=== PATIENT | female | born 1970 | race Caucasian/White ===

== ENCOUNTER 2020-08-12 16:19 | Outpatient (REF) | payer OTHER, SELFPAY ==
--- NOTE | 2020-08-12 16:20 | MR_ITS ---
EXAMINATION: MR PELVIS WITHOUT AND WITH CONTRAST CLINICAL INFORMATION: Leiomyoma of uterus, unspecified; D25.9 COMPARISON: Ultrasound pelvis 05/20/2020 TECHNIQUE: MR pelvis is performed without and with use of 7.5 mL Gadavist gadolinium contrast. Precontrast imaging is performed in 3 planes and postcontrast imaging in the axial plane. FINDINGS: The uterus is anteverted and measures 9.6 x 8.0 x 6.8 cm. Endometrial double wall thickness is under 4 mm. Junctional zone is normal. There is a dominant fibroid posterior body intramural and subserosal measuring 4.8 x 4.9 x 5.4 cm. This fibroid is isoechoic with myometrium on T1 and T2 with scattered internal high T2 signal. This fibroid enhances isointense with myometrium following contrast with a few small internal foci of cystic degeneration, largest 1 cm. There are approximately 10 other scattered smaller fibroids within the uterus fundus, body, and lower segment ranging in size from 0.6 cm to 1.5 cm. These fibroids range from submucous to subserous in location. These are all isoechoic with myometrium on T1 and low signal on T2. Some of these fibroids enhance similar to myometrium and others less than myometrium following contrast. The ovaries are unremarkable. There is no adnexal mass. Left ovary measures approximately 2.9 x 1.7 cm. The right ovary measures 2.3 x 1.1 cm. There is no bowel obstruction or inflammatory changes in bowel or mesentery. The appendix is normal. There is no significant hernia. No adenopathy. Marrow signal is normal. There is a small left S2 Tarlov cyst measuring 0.9 x 1.1 cm, best appreciated sagittal series 5, image 14. IMPRESSION: 1. Multiple uterine fibroids, largest 5.4 cm, others 1.5 cm and less. 2. No adnexal mass or pelvic ascites. 3. Left S2 Tarlov cyst 1 cm.
== END 2020-08-12 16:20 | disposition home or self-care (01) ==
LOC: HO.MRI 16:19
PROVIDERS: Visit Provider Obstetrics & Gynecology
DX: D25.9 Leiomyoma of uterus, unspecified (principal)
CPT/HCPCS: 72197

== ENCOUNTER → 2020-09-01 15:51 | Outpatient (BNVA) | payer OTHER, SELFPAY | PROVIDERS: Visit Provider Obstetrics & Gynecology | DX: Z76.89 Persons encountering health services in other specified circumstances (principal) ==

== ENCOUNTER → 2020-12-16 12:50 | Outpatient (BNVA) | payer OTHER, SELFPAY | PROVIDERS: Visit Provider Physician Assistant Medical | DX: S61.211A Laceration without foreign body of left index finger without damage to nail, initial encounter (principal); W26.8XXA Contact with other sharp object(s), not elsewhere classified, initial encounter | CPT/HCPCS: 90715; 99203 ==

== ENCOUNTER → 2020-12-18 13:41 | Outpatient (BNVA) | payer OTHER, SELFPAY | PROVIDERS: Visit Provider Internal Medicine | DX: S61.211A Laceration without foreign body of left index finger without damage to nail, initial encounter (principal); W26.8XXA Contact with other sharp object(s), not elsewhere classified, initial encounter | CPT/HCPCS: 99213 ==

== ENCOUNTER → 2020-12-22 13:27 | Outpatient (BNVA) | payer OTHER, SELFPAY | PROVIDERS: Visit Provider Internal Medicine | DX: S61.211D Laceration without foreign body of left index finger without damage to nail, subsequent encounter (principal); L08.9 Local infection of the skin and subcutaneous tissue, unspecified; X58.XXXD Exposure to other specified factors, subsequent encounter | CPT/HCPCS: 99213 ==

== ENCOUNTER 2021-01-06 13:25 | Outpatient (REF) | payer OTHER, SELFPAY ==
--- NOTE | ~2021-01-06 | US_ITS ---
EXAMINATION: PELVIC ULTRASOUND CLINICAL INFORMATION: Leiomyoma of uterus COMPARISON: Previous CT and ultrasound of the pelvis April 2020 and MRI of the pelvis July 2020 TECHNIQUE: Transabdominal and transvaginal pelvic ultrasound was performed. Transvaginal exam was performed for better visualization of the uterus and ovaries. FINDINGS: The uterus is anteverted and measures 8 x 4.4 x 4.9 cm in dimension. There is a large posterior uterine body intramural and subserosal fibroid measuring 4.7 x 4.3 x 4.9 cm. This is not appreciably changed in size measuring 5 x 4.4 x 5.2 cm on previous ultrasound exam and 4.8 x 4.9 x 5.4 cm on previous MRI. There are 2 smaller anterior uterine body and fundal intramural fibroids measuring 1.4 x 1.9 x 1.5 cm and 1.6 x 2 x 1.2 cm. These were not seen on prior ultrasound. These do not appear appreciably changed compared to previous pelvic MRI July 2020. The remainder of the small uterine fibroids seen by MRI July 2020 are not appreciated. Endometrial thickness is normal measuring 0.6 cm. The IUD is seen on April 2020 exam is no longer seen. This was not seen on previous MRI July 2020. The cervix is normal. The right ovary is not seen. The left ovary is normal-appearing and measures 1.6 x 1.6 x 1.1 cm. There is no fluid in the pelvis. US/US pelvic complete IMPRESSION: Fibroid uterus. Largest fibroid measures 4.7 x 4.3 x 4.9 cm in the posterior uterine body and does not appear appreciably changed. Right ovary not seen. Normal-appearing left ovary.
== END 2021-01-06 13:26 | disposition home or self-care (01) ==
LOC: HO.US 13:25
PROVIDERS: Visit Provider Obstetrics & Gynecology
DX: D25.9 Leiomyoma of uterus, unspecified (principal)
CPT/HCPCS: 76830; 76856

== ENCOUNTER → 2021-01-19 10:23 | Outpatient (BNVA) | payer OTHER, SELFPAY | PROVIDERS: Visit Provider Obstetrics & Gynecology ==

== ENCOUNTER 2021-03-03 10:18 | Emergency (ER) | payer OTHER, SELFPAY ==
--- NOTE | ~2021-03-03 | MR_ITS ---
EXAMINATION: MR BRAIN WITHOUT AND WITH CONTRAST CLINICAL INFORMATION: Right eye rectus muscle palsy. Vertical double vision. COMPARISON: CT head from 03/03/2021. Brain MRI from 07/09/2016. TECHNIQUE: MRI of the brain was obtained using routine sequences without and following the administration of 7.5 mL of Gadavist intravenous contrast. FINDINGS: No focal restricted diffusion is demonstrated to suggest acute or subacute cerebral ischemia. No evidence of acute or chronic hemorrhagic products on heme-sensitive imaging. Mild scattered periventricular and deep white matter T2 FLAIR hyperintensities. The ventricles are normal in morphology and size. No abnormal mass effect. No midline shift. Normal appearance of the pituitary gland. The suprasellar cistern remains widely patent. No abnormalities of the posterior fossa with normal appearance of the brainstem and cerebellum. Normal arterial and venous vascular flow voids are present. No abnormal contrast enhancement. Normal, homogeneous marrow signal. Mild mucosal thickening of the paranasal sinuses. No signal abnormalities within the mastoids. No demonstrated abnormalities of the orbits on limited evaluation. MR/MR head/brain wo/w con IMPRESSION: 1. No acute intracranial abnormalities. No abnormal intracranial enhancement. 2. Mild nonspecific white matter changes, similar to exam from 2016.
--- NOTE | ~2021-03-03 | CT_ITS ---
EXAMINATION: CT HEAD WITHOUT CONTRAST CLINICAL INFORMATION: Intermittent diplopia COMPARISON: Previous head CT June 2016 TECHNIQUE: Contiguous axial imaging was performed from the skull base to vertex without intravenous administration of contrast. This CT examination was performed using dose optimization techniques as appropriate, variously including the following: *Automated exposure control *Adjustment of mA and/or kV according to patient size (this includes techniques or standardized protocols for targeted exams where dose is matched to indication/reason for exam; i.e. extremities or head) *Use of iterative reconstruction technique DLP: 684 mGy-cm FINDINGS: There is no evidence of acute intracranial hemorrhage or territorial infarction. No abnormal mass effect or midline shift is seen. [place]ales to white matter differentiation is well preserved. No extra-axial fluid collections are identified. The ventricles are normal in size. There is no abnormal attenuation within the brain parenchyma. The osseous structures and soft tissues are normal. The mastoid air cells and visualized portions of the paranasal sinuses are well aerated. CT/CT head/brain wo con IMPRESSION: Unremarkable exam
--- NOTE | 2021-03-03 10:32 | ECG_ITS ---
Test Reason : DIZZY Blood Pressure : / mmHG Vent. Rate : 054 BPM Atrial Rate : 054 BPM P-R Int : 148 ms QRS Dur : 080 ms QT Int : 410 ms P-R-T Axes : 047 043 042 degrees QTc Int : 388 ms Sinus bradycardia Otherwise normal ECG When compared with ECG of 06-MAY-2020 10:53, No significant change was found Referred By: Richelle Coronado Electronically Signed By:Rubio Marin
--- NOTE | 2021-03-03 10:49 | ED_ITS ---
HPI - Weakness General Chief complaint: General Medical Stated complaint: multiple complaints Time Seen by Provider: 03/03/21 10:23 Source: patient Mode of arrival: ambulatory Limitations: no limitations History of Present Illness HPI Narrative: 50 yo female s/p Moderna first shot on the next day woke up with sweats, fatigue, confusion - slept the entire next day when she woke she felt weak and intermittent vertical diplopia that resolved today, sent by [facility] for evaluation Complaint: generalized weakness Onset (ago): day(s) (started Tuesday after Moderna vaccine) Duration: intermittent Migration: none Severity: moderate Quality: dull Relieving factors: none Exacerbating factors: none Context: other (Moderna vaccine on ) Associated symptoms: other (weakness, fatigue, sweats, vertical double vision that has resolved) Related Data Home Medications Medication Instructions Recorded Confirmed omeprazole 20 mg capsule,delayed 20 mg PO DAILY 07/31/20 09/01/20 release Allergies Allergy/AdvReac Type Severity Reaction Status Date / Time Penicillins [PENICILLINS] Allergy Intermediate HIVES Verified 01/19/21 10:24 Review of Systems Review of Systems: Constitutional : No Weight loss, No Fever, No Chills, No Fatigue, No Malaise ENT/Mouth : No sore throat, No Rhinorrhea Eyes: No Eye Pain, No Swelling, No Redness, pos intermittent double vision Cardiovascular : No Chest Pain, No SOB, No Dyspnea on Exertion, No Orthopnea, No Edema, No Palpitations Respiratory : No Cough, No Sputum, No Wheezing Gastrointestinal : No Nausea, No Vomiting, No Diarrhea, No Constipation, No abdominal Pain, No Hematochezia, No Melena Genitourinary : No Dysuria, No Urinary Frequency, No Hematuria, Musculoskeletal : No joint pain, No Myalgias, No Joint Swelling Skin : No Skin Lesions, No rash Neuro : pos Weakness, No Numbness, No Dizziness, No Headache Psych : No Anxiety/Panic, No Depression Heme/Lymph: No Bruising, No Bleeding,No Lymphadenopathy Endocrine : No Polyuria, No Polydipsia All other systems reviewed and are negative [facility] Past Medical History Attestation statement: The following information was validated with the patient. Medical History (Updated 03/03/21 @ 14:40 by Richelle Coronado DO) Uterine myoma Family History Family History Father Liver cancer Paternal Grandmother Ovarian cancer Paternal Aunt Breast cancer Mother Lung cancer Social History Social History Alcohol intake: never Smoking Status: Current some day smoker Use of substances other than those prescribed or required for medical reasons: No Advance Directives: No Sexual orientation: Straight/Heterosexual Gender identity: female Physical Exam Vital Signs: Vital Signs: Last Vital Signs Temp 97.8 F 03/03/21 16:40 Pulse 57 03/03/21 16:40 Resp 14 03/03/21 16:40 BP 116/84 03/03/21 16:40 Pulse Ox 98 03/03/21 16:40 Body Mass Index 25.8 Appearance: Alert. Oriented X3. No acute distress. Eyes: Pupils equal, round and reactive to light. R eye slightly deviated to the right at times ENT: Pharynx normal. Neck: Normal inspection. Neck supple. CVS: Normal heart rate and rhythm. Pulses normal. Respiratory: No respiratory distress. Breath sounds normal. Abdomen: Soft and nontender. Skin: Skin warm and dry. Normal skin color. Normal skin turgor. Extremities: No lower extremity edema. No calf ttp Neuro: Oriented X 3. No motor deficit. No sensory deficit. 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 as her license picture shows R eye deviation. on Nov 2019 no reports of strabismus at that time per tech in the office. MRI to evaluate for IN ophthalmoplegia vs MS flare has not had return of vision changes while in the ED normal vision during her course in the ED, no signs of MS, no stroke, can follow up with her eye doctor MDM - Weakness MDM Narrative Medical decision making narrative: 50 yo female s/p Moderna first shot on the next day woke up with sweats, fatigue, confusion - slept the entire next day when she woke she felt weak and intermittent vertical diplopia that resolved today, sent by [facility] [employer] for evaluation at this time no known s trabismus of eye, she has no vertical diplopia at this time, will obtain labs, CT head given symptoms > 2 days, possible CTA, IVF dispo per results and findings, unsure if this is chronic or new strabismus and if she has a cranial nerve palsy in the eye. Lab Data Result diagrams: 03/03/21 12:14 03/03/21 12:14 Labs: Lab Results 03/03/21 03/03/21 03/03/21 Range/Units 12:14 12:14 12:14 WBC 8.0 (4.8-10.8) X10*3/uL RBC 4.58 (4.20-5.50) X10*6/uL Hgb 14.4 (12.0-16.0) g/dl Hct 43.1 (37-47) % MCV 94.1 (80-98) fL MCH 31.4 (27.0-33.0) pg MCHC 33.4 (31.0-35.0) g/dl RDW 13.3 (11.0-16.0) % Plt Count 270 (160-400) X10*3/uL MPV 9.7 (9.4-12.3) fL Immature Gran % (Auto) 0.6 H (0.0-0.4) % Neut % (Auto) 67.1 (45-73) % Lymph % (Auto) 24.2 (20-40) % [place] % (Auto) 6.5 (2-11) % Eos % (Auto) 1.1 (0-4) % Baso % (Auto) 0.5 (0-2) % Lymph # (Auto) 1.9 (1.2-4.9) X10*3/uL [place] # (Auto) 0.5 (0.1-1.2) X10*3/uL Eos # (Auto) 0.1 (0.0-0.4) X10*3/uL Baso # (Auto) 0.0 (0.0-0.2) X10*3/uL Abs Immat Gran (auto) 0.05 H (0.00-0.03) X10*3/uL Absolute Neuts (auto) 5.4 (2.0-8.3) X10*3/uL Absolute Nucleated RBC 0.000 (0.0-0.012) X10*3/uL Nucleated RBC % (auto) 0.0 (0.0-0.2) /100WBC Hold Blue Top SEE NOTE Sodium 140 (135-145) mmol/L Potassium 4.2 (3.3-5.1) mmol/L Chloride 108 (96-108) mmol/L Carbon Dioxide 26 (22-29) mmol/L Anion Gap 10 L (12-20) BUN 11 (9-16) mg/dL Creatinine 0.74 (0.5-1.4) mg/dL Estim Creat Clear Calc 92.7 Estimated GFR > 60 Random Glucose 81 (60-115) mg/dL Calcium 8.9 (8.4-10.2) mg/dL Magnesium 2.1 (1.6-2.6) mg/dL Total Bilirubin 0.5 (0.0-1.0) mg/dL Direct Bilirubin 0.2 (0.0-0.5) mg/dL AST 20 (5-31) U/L ALT 25 (0-31) U/L Alkaline Phosphatase 69 (39-117) U/L Total Creatine Kinase 170 H (26-140) U/L Total Protein 6.2 L (6.5-8.0) g/dL Albumin 4.1 (3.5-5.0) g/dL Lipase 12 (8-78) U/L Urine Color Urine Appearance Urine pH (5.0-8.0) Ur Specific Ballard (1.005-1.025) Urine Protein (NEG-TRACE) MG/DL Urine Glucose (UA) (NEG) MG/DL Urine Ketones (NEG) MG/DL Urine Blood (NEG) Urine Nitrite (NEG) Ur Leukocyte Esterase (NEG) 03/03/21 Range/Units 13:58 WBC (4.8-10.8) X10*3/uL RBC (4.20-5.50) X10*6/uL Hgb (12.0-16.0) g/dl Hct (37-47) % MCV (80-98) fL MCH (27.0-33.0) pg MCHC (31.0-35.0) g/dl RDW (11.0-16.0) % Plt Count (160-400) X10*3/uL MPV (9.4-12.3) fL Immature Gran % (Auto) (0.0-0.4) % Neut % (Auto) (45-73) % Lymph % (Auto) (20-40) % [place]asper % (Auto) (2-11) % Eos % (Auto) (0-4) % Baso % (Auto) (0-2) % Lymph # (Auto) (1.2-4.9) X10*3/uL [place] # (Auto) (0.1-1.2) X10*3/uL Eos # (Auto) (0.0-0.4) X10*3/uL Baso # (Auto) (0.0-0.2) X10*3/uL Abs Immat Gran (auto) (0.00-0.03) X10*3/uL Absolute Neuts (auto) (2.0-8.3) X10*3/uL Absolute Nucleated RBC (0.0-0.012) X10*3/uL Nucleated RBC % (auto) (0.0-0.2) /100WBC Hold Blue Top Sodium (135-145) mmol/L Potassium (3.3-5.1) mmol/L Chloride (96-108) mmol/L Carbon Dioxide (22-29) mmol/L Anion Gap (12-20) BUN (9-16) mg/dL Creatinine (0.5-1.4) mg/dL Estim Creat Clear Calc Estimated GFR Random Glucose (60-115) mg/dL Calcium (8.4-10.2) mg/dL Magnesium (1.6-2.6) mg/dL Total Bilirubin (0.0-1.0) mg/dL Direct Bilirubin (0.0-0.5) mg/dL AST (5-31) U/L ALT (0-31) U/L Alkaline Phosphatase (39-117) U/L Total Creatine Kinase (26-140) U/L Total Protein (6.5-8.0) g/dL Albumin (3.5-5.0) g/dL Lipase (8-78) U/L Urine Color YELLOW Urine Appearance CLEAR Urine pH 6.0 (5.0-8.0) Ur Specific Ballard <= 1.005 (1.005-1.025) Urine Protein NEG (NEG-TRACE) MG/DL Urine Glucose (UA) NEG (NEG) MG/DL Urine Ketones NEG (NEG) MG/DL Urine Blood NEG (NEG) Urine Nitrite NEG (NEG) Ur Leukocyte Esterase NEG (NEG) ECG Data Attestation: I personally reviewed and interpreted this ECG as follows: ECG interpretation date: 03/03/21 ECG interpretation time: 10:57 Interpretation: Rate: 54 Rhythm: sinus bradycardia [place]: normal Normal P waves. Normal [place]. Normal QRS complex. ST T wave : normal, no ROBIN qTC: normal prior studies: no acute ischemia The study has been interpreted contemporaneously by me. . Discharge Plan Discharge Clinical Impression: Weakness, Vertical diplopia Patient Disposition: Home, Self-Care Instructions: Diplopia (ED), Weakness (ED) Additional Instructions: return to ED for any worsening symptoms or concerns YOU NEED TO SEE YOUR EYE DOCTOR SOON POSSIBLE, NEGATIVE MRI FOR STROKE AND MS Prescriptions: No Action omeprazole 20 mg capsule,delayed release(DR/EC) 20 mg PO DAILY RF: 0 Stand Alone Forms: Work/School Release
[2021-03-03 10:58] VITALS: BP 125/64; PULSE 59; RESP 18; TEMP 36.8; O2SAT 100; BMI 25.8
[2021-03-03] MEDS: 0.9 % Sodium Chloride 1,000 ML 999 ML IVCONT (11:43)
[2021-03-03 12:24] LABS: MANUAL DIFF FLAG NO
[2021-03-03 12:27] LABS: Basophils Percent Auto 0.5 % (0-2); Eosinophils Absolute Auto 0.1 X10*3/uL (0.0-0.4); Eosinophils Percent Auto 1.1 % (0-4); Hematocrit 43.1 % (37-47); Hemoglobin 14.4 g/dl (12.0-16.0); Imm Gran Abs Auto 0.05 X10*3/uL (0.00-0.03); Imm Gran Pct Auto 0.6 % (0.0-0.4); Lymphocytes Absolute Auto 1.9 X10*3/uL (1.2-4.9); Lymphocytes Percent Auto 24.2 % (20-40); Mean Corpuscular HGB Conc 33.4 g/dl (31.0-35.0); Mean Corpuscular Hemoglobin 31.4 pg (27.0-33.0); Mean Corpuscular Volume 94.1 fL (80-98); Mean Platelet Volume 9.7 fL (9.4-12.3); Monocytes Absolute Auto 0.5 X10*3/uL (0.1-1.2); Monocytes Percent Auto 6.5 % (2-11); Neutrophils Absolute Auto 5.4 X10*3/uL (2.0-8.3); Neutrophils Percent Auto 67.1 % (45-73); Platelet Count 270 X10*3/uL (160-400); Red Blood Count 4.58 X10*6/uL (4.20-5.50); Red Cell Distribution Width 13.3 % (11.0-16.0)
[2021-03-03 12:51] LABS: Alanine Aminotransferase 25 U/L (0-31); Albumin Level 4.1 g/dL (3.5-5.0); Alkaline Phosphatase 69 U/L (39-117); Anion Gap 10 (12-20); Aspartate Amino Transferase 20 U/L (5-31); Bilirubin Direct 0.2 mg/dL (0.0-0.5); Bilirubin Total 0.5 mg/dL (0.0-1.0); Blood Urea Nitrogen 11 mg/dL (9-16); Calcium 8.9 mg/dL (8.4-10.2); Carbon Dioxide 26 mmol/L (22-29); Chloride 108 mmol/L (96-108); Creatinine Clr Calc Pharmacy 92.7; Estimated Glomerular Filt Rate > 60; Glucose Random 81 mg/dL (60-115); Lipase 12 U/L (8-78); Magnesium 2.1 mg/dL (1.6-2.6); Potassium 4.2 mmol/L (3.3-5.1); Sodium 140 mmol/L (135-145); Total Protein 6.2 g/dL (6.5-8.0)
[2021-03-03 13:53] VITALS: BP 133/59; PULSE 56; RESP 15; TEMP 36.6; O2SAT 100
[2021-03-03 14:15] LABS: Glucose Urine UA NEG (NEG); Leukocyte Esterase Urine NEG (NEG); Nitrite Urine NEG (NEG); Specific Gravity - Urine <= 1.005 (1.005-1.025); Urine Blood NEG (NEG); Urine Ketones NEG (NEG); Urine Protein NEG (NEG-TRACE)
[2021-03-03 14:16] LABS: Appearance Urine CLEAR; Color Urine YELLOW
--- NOTE | 2021-03-03 15:00 | PC.NURSE ---
pt to MRI at this time
[2021-03-03 16:40] VITALS: BP 116/84; PULSE 57; RESP 14; TEMP 36.6; O2SAT 98
== END 2021-03-03 17:11 | disposition home or self-care (01) ==
PROVIDERS: Emergency Provider Emergency Medicine; PCP Internal Medicine Medical Oncology
DX: R53.1 Weakness (principal); H53.2 Diplopia; F17.200 Nicotine dependence, unspecified, uncomplicated
CPT/HCPCS: 36415; 70450; 70553; 80048; 80076; 81003; 82550; 83690; 83735; 85025; 93005; 96361; 96374; 99284; A9585

== ENCOUNTER → 2021-03-25 15:05 | Outpatient (BNVA) | payer OTHER, SELFPAY | PROVIDERS: PCP Internal Medicine Medical Oncology; Visit Provider Obstetrics & Gynecology ==

== ENCOUNTER 2021-04-23 12:25 | Outpatient (REF) | payer OTHER, SELFPAY ==
[2021-04-24 04:51] LABS: CT PCR NOT DETECTED (Not Detect.); NG PCR NOT DETECTED (Not Detect.)
[2021-04-24 11:58] LABS: BV Int Neg Control Negative (Negative); BV Int Pos Control Positive (Positive)
== END 2021-04-23 12:26 | disposition home or self-care (01) ==
LOC: HO.LAB 12:25
PROVIDERS: Visit Provider Obstetrics & Gynecology
DX: R10.2 Pelvic and perineal pain (principal); N76.0 Acute vaginitis; B96.89 Other specified bacterial agents as the cause of diseases classified elsewhere; F17.210 Nicotine dependence, cigarettes, uncomplicated
CPT/HCPCS: 87480; 87491; 87510; 87591; 87660

== ENCOUNTER 2021-04-30 14:15 | Outpatient (REF) | payer OTHER, SELFPAY ==
--- NOTE | ~2021-04-30 | US_ITS ---
EXAMINATION: PELVIC ULTRASOUND CLINICAL INFORMATION: Pain COMPARISON: Previous pelvic MRI July 2020, pelvic ultrasound April [address] of the abdomen and pelvis April 2020 TECHNIQUE: Transabdominal and transvaginal pelvic ultrasound was performed. Transvaginal exam was performed for better visualization of the uterus and ovaries. FINDINGS: The uterus is anteverted and measures 9.5 x 5.4 x 7.9 cm in dimension. There are 4 uterine fibroids seen. Largest fibroid is a 5.6 x 7.2 x 7.4 cm posterior upper uterine body fibroid. This is increased from 4.7 x 4.3 x 5 cm on most recent exam December 2020 and 4.8 x 4.9 x 5.4 cm on MRI July 2020. There is a 1.9 x 2.1 x 2.1 cm anterior uterine body fibroid increased from 1.4 x 1.9 x 1.5 cm. There is a 1.3 x 1.6 x 1.3 cm fibroid in the uterine fundus that does not appear appreciably changed. There is an adjacent 1.6 x 1.9 x 1.6 cm fibroid that was not appreciated on prior ultrasound. Endometrial thickness is normal measuring 0.6 cm. There are nabothian cysts in the cervix. The ovaries are seen transabdominally only and are normal-appearing. The right ovary measures 2.7 x 1.3 x 2.7 cm. The left ovary measures 1.9 x 1.1 x 1.6 cm. There is no fluid in the pelvis. US/US pelvic and transvaginal IMPRESSION: Fibroid uterus. Fibroids appear increased in size compared to previous exams.
== END 2021-04-30 14:16 | disposition home or self-care (01) ==
LOC: HO.HMGCX 14:15
PROVIDERS: PCP Internal Medicine Medical Oncology; Visit Provider Obstetrics & Gynecology
DX: R10.2 Pelvic and perineal pain (principal)
CPT/HCPCS: 76830; 76856

== ENCOUNTER → 2021-05-07 11:45 | Outpatient (BNVA) | payer OTHER, SELFPAY | PROVIDERS: Visit Provider Obstetrics & Gynecology ==

== ENCOUNTER 2021-05-27 10:09 | Outpatient (REF) | payer OTHER, SELFPAY | END 2021-05-27 10:10 | disposition home or self-care (01) | LOC: HO.LAB 10:09 | PROVIDERS: Visit Provider Obstetrics & Gynecology | DX: N95.0 Postmenopausal bleeding (principal) | CPT/HCPCS: 58100; 88305 ==

== ENCOUNTER → 2021-06-10 11:57 | Outpatient (BNVA) | payer OTHER, SELFPAY | PROVIDERS: Visit Provider Obstetrics & Gynecology ==

== ENCOUNTER 2021-07-08 15:26 | Outpatient (REF) | payer OTHER, SELFPAY ==
--- NOTE | ~2021-07-08 | MM_ITS ---
EXAMINATION: MM SCREENING DIGITAL BREAST TOMOSYNTHESIS, BILATERAL CLINICAL INFORMATION: Screening. Asymptomatic. Right ultrasound-guided biopsy 07/06/2019 (breast parenchyma showing portion of a cyst wall with chronic inflammation and fibrosis). The lifetime risk of breast cancer based on the Tyrer-Cuzick Model is 23%. COMPARISON: Mammography: 07/06/2019, 07/03/2019, 12/28/2018, 12/30/2016 TECHNIQUE: Digital breast tomosynthesis is performed in both the craniocaudal and mediolateral oblique views along with computer-aided detection (CAD). Synthesized 2D images are generated from the tomosynthesis. FINDINGS: The breasts are extremely dense, which lowers the sensitivity of mammography (ACR BI-RADS breast composition Category d). There are no significant masses, abnormal calcifications, or other abnormalities. There are some scattered uniform small smooth nodularity upper and outer right breast. Dominant oval masses right breast noted previously have resolved. No architectural abnormality or interval suspicious changes. Scattered bilateral punctate calcifications. The skin contours are smooth. MM/MM tomosynthesis screening BI IMPRESSION: No significant changes from prior exams. ASSESSMENT: BI-RADS 2: Benign RECOMMENDATION: 1. Routine annual mammography screening. 2. The lifetime risk of breast cancer based on the Tyrer-Cuzick Model is 23%. Additional annual adjunct screening with breast MRI may be of benefit in women with a risk score of 20% or greater. This patient's information was entered into a reminder system with a target due date for their next mammogram.
== END 2021-07-08 15:27 | disposition home or self-care (01) ==
LOC: HO.MAMMO 15:26
PROVIDERS: Visit Provider Obstetrics & Gynecology
DX: Z12.31 Encounter for screening mammogram for malignant neoplasm of breast (principal)
CPT/HCPCS: 77063; 77067

== ENCOUNTER 2021-09-08 12:28 | Outpatient (REF) | payer OTHER, SELFPAY ==
[2021-09-09 09:41] LABS: CT PCR NOT DETECTED (Not Detect.); NG PCR NOT DETECTED (Not Detect.)
== END 2021-09-08 12:29 | disposition home or self-care (01) ==
LOC: HO.LAB 12:28
PROVIDERS: Visit Provider Obstetrics & Gynecology
DX: Z11.3 Encounter for screening for infections with a predominantly sexual mode of transmission (principal); R10.2 Pelvic and perineal pain; N95.0 Postmenopausal bleeding; D21.9 Benign neoplasm of connective and other soft tissue, unspecified
CPT/HCPCS: 87491; 87591

== ENCOUNTER 2021-09-09 14:20 | Outpatient (REF) | payer OTHER, SELFPAY ==
--- NOTE | ~2021-09-09 | US_ITS ---
EXAMINATION: US PELVIC US TRANSVAGINAL CLINICAL INFORMATION: Pelvic pain. History of uterine fibroids, follow up. COMPARISON: None TECHNIQUE: Ultrasound of the pelvis is performed using both transabdominal and transvaginal transducers along with Doppler. Transvaginal imaging is performed due to inadequate visualization transabdominally. FINDINGS: An enlarged fibroid uterus is present measuring 10.3 x 4.9 x 5.9 cm. Multiple uterine fibroids are present, one on the dorsal surface measuring 6.2 x 6.7 x 6.4 cm (previously 5.6 x 7.2 x 7.4 cm). A second fibroid is seen dorsally measuring 1.9 x 1.9 x 1.7 cm (previously 1.9 x 2.1 x 2.1 cm) and a final fibroid is at the fundus measuring 1.2 x 1.0 x 1.1 cm (previously 1.3 x 1.6 x 1.3 cm). A fourth fibroid that was seen previously is not identified on the current study. Nabothian cysts are present in the cervix. The endometrium measures 1.2 cm. The right ovary measures 3.3 x 2.4 x 2.2 cm for a volume of 9.1 mL and contains a simple benign 2.0 x 2.3 x 1.9 cm cyst. Left ovary measures 1.9 x 2.0 x 1.5 cm with a volume of 3.0 mL and appears unremarkable. US/US pelvic and transvaginal IMPRESSION: Multiple uterine fibroids which appear overall slightly smaller in size. Benign simple right ovarian cyst needs no further follow up.
== END 2021-09-09 14:21 | disposition home or self-care (01) ==
LOC: HO.US 14:20
PROVIDERS: Visit Provider Obstetrics & Gynecology
DX: D21.9 Benign neoplasm of connective and other soft tissue, unspecified (principal)
CPT/HCPCS: 76830; 76856

== ENCOUNTER → 2021-09-28 15:44 | Outpatient (BNVA) | payer OTHER, SELFPAY | PROVIDERS: Visit Provider Obstetrics & Gynecology ==

== ENCOUNTER → 2021-10-27 08:27 | Outpatient (BNVA) | payer OTHER, SELFPAY | PROVIDERS: Visit Provider Obstetrics & Gynecology ==

== ENCOUNTER 2021-10-30 07:32 | Day surgery (SDC) | payer OTHER, SELFPAY ==
[2021-10-20 13:29] VITALS: BMI 25.8
--- NOTE | 2021-10-29 12:06 | P.CONAN_ITS ---
Documented by User: Anahi eLon NP 10/29/21 12:07 HPI - Anesthesia Eval Consult details Narrative: 51yo F for D&C Hysteroscopy, Possible Polypectomy, Possible myomectomy PMFSH Active Problems Active Problems: All Active Problems (Updated 10/20/21 @ 13:26 by Corinna Mtz RN) Well woman exam (Acute) Myoma (Acute) Post-menopausal bleeding (Acute) Pelvic pain (Acute) Bacterial vaginosis (Acute) Past Medical History Medical History COVID-19 vaccine series completed Family history of anesthesia complication Heart murmur Heartburn Uterine myoma Family History Family History Father Liver cancer Paternal Grandmother Ovarian cancer Paternal Aunt Breast cancer Mother Lung cancer Surgical History Surgical History H/O colonoscopy History of esophagogastroduodenoscopy (EGD) History of repair of laceration Hx of dilation and curettage Social History Social History Household Members Other:: fiance Are you a primary skin care specialist to a significant other at home: No Do you presently have visiting nurse or other home services: No Alcohol intake: never Patient Tobacco Use Status: Current everyday Tobacco user Tobacco use type: Cigarette Cigarette Packs Per Day: 0.75 Cigarettes Per Day: 15 Years Smoked: 30 Smoked in Last 30 Days: Yes Use of substances other than those prescribed or required for medical reasons: No Have you been hit, kicked, punched, or otherwise hurt by someone within the past year? If so, by whom?: No Are you DNR?: No Advance Directives: No Advance Directives Information Provided: Yes (informational brochure mailed) Advance Directives on File: No Recently lost weight without trying: No Eating poorly because of decreased appetite: No Nutrition Risks: No Nutritional Risk Patient : No FDLMP: 07/2021-irregular Poor oral hygiene: No (molar w/missing filling) Sexual orientation: Straight/Heterosexual Gender identity: Female Meds Allergies Allergy/AdvReac Type Severity Reaction Status Date / Time Penicillins [PENICILLINS] Allergy Intermediate HIVES Verified 10/30/21 08:23 Home Medications Medication Instructions Recorded Confirmed Last Taken Type multivitamin 1 tab PO DAILY 10/20/21 10/20/21 Unknown History Exam Exam Date and Time: October 29, 2021 1206 Height,Weight and Vital Signs: Height 5 ft 6 in Weight 72.575 kg Narrative Narrative: EKG 02/2021 Vent. Rate : 054 BPM ? ? Atrial Rate : 054 BPM ?? P-R Int : 148 ms? QRS Dur : 080 ms ? ? QT Int : 410 ms ? ? ? P-R-T Axes : 047 043 042 degrees ?? QTc Int : 388 ms ? Sinus bradycardia Otherwise normal ECG When compared with ECG of 06-MAY-2020 10:53, No significant change was found Assessment and Plan Assessment Anesthesia Assessment: Chart Reviewed Documented by User: Romaine Moreno 10/30/21 08:40 HPI - Anesthesia Eval Consult details Narrative: 51yo F for D&C Hysteroscopy, Possible Polypectomy, Possible myomectomy gerd PMFSH Past Medical History Medical History COVID-19 vaccine series completed Family history of anesthesia complication Heart murmur Heartburn Uterine myoma Functional capacity: independent ambulation Family History Family History Father Liver cancer Paternal Grandmother Ovarian cancer Paternal Aunt Breast cancer Mother Lung cancer Family history of problems with anesthesia: Yes (Cardiac arrest with mother . ) Surgical History Surgical History H/O colonoscopy History of esophagogastroduodenoscopy (EGD) History of repair of laceration Hx of dilation and curettage History of Problems with Anesthesia: No Social History Social History Household Members Other:: fiance Are you a primary skin care specialist to a significant other at home: No Do you presently have visiting nurse or other home services: No Alcohol intake: never Patient Tobacco Use Status: Current everyday Tobacco user Tobacco use type: Cigarette Cigarette Packs Per Day: 0.75 Cigarettes Per Day: 15 Years Smoked: 30 Smoked in Last 30 Days: Yes Use of substances other than those prescribed or required for medical reasons: No Have you been hit, kicked, punched, or otherwise hurt by someone within the past year? If so, by whom?: No Are you DNR?: No Advance Directives: No Advance Directives Information Provided: Yes (informational brochure mailed) Advance Directives on File: No Recently lost weight without trying: No Eating poorly because of decreased appetite: No Nutrition Risks: No Nutritional Risk Patient : No FDLMP: 07/2021-irregular Poor oral hygiene: No (molar w/missing filling) Sexual orientation: Straight/Heterosexual Gender identity: Female Meds Allergies Allergy/AdvReac Type Severity Reaction Status Date / Time Penicillins [PENICILLINS] Allergy Intermediate HIVES Verified 10/30/21 08:23 Home Medications Medication Instructions Recorded Confirmed Last Taken Type multivitamin 1 tab PO DAILY 10/20/21 10/20/21 Unknown History Exam Airway Mallampati Class: I Neck ROM: Full Loose/Missing/Broken Teeth: Yes Heart: rrr Lungs: bl breath sounds Assessment and Plan Final Anesthetic Review Family History of Problems with Anesthesia: Yes (Cardiac arrest with mother . ) History of Problems with Anesthesia: No NPO: Yes ASA Class: II Anesthetic Plan Anesthetic Plan: GA
[2021-10-30] VITALS (8 sets, daily range): BP systolic 122–154; BP diastolic 72–93; PULSE 61–81; RESP 12–20; TEMP 36.2–37.2; O2SAT 98–100
[2021-10-30] MEDS: Lactated Ringers 1,000 ML 100 ML IVCONT (08:40)
--- NOTE | 2021-10-30 09:22 | MHC.SHP ---
Pre-Procedural Eval Section A Date of Service: 10/30/21 The patient is an INPATIENT: No Changes since office visit: No Cold of Flu in the past 2 weeks, No New Medical Problems, No Changes in Medication and No Patient answered all questions The History & Physical has been completed within 30 days and I have reviewed it.: Yes Section B Chief Complaint: postmenopausal bleeding Allergies: Allergies Allergy/AdvReac Type Severity Reaction Status Date / Time Penicillins [PENICILLINS] Allergy Intermediate HIVES Verified 10/30/21 08:23 Plan Diagnosis/Plan: Unchanged I have reviewed the history and physical and performed a pertinent physical examination on my patient. No changes have occurred unless specified.
--- NOTE | 2021-10-30 09:59 | PM.OP ---
Brief Operative Note Date of Service: 10/30/21 Pre-op diagnosis: Postmenopausal bleeding Post-op diagnosis: same (Submucosal myoma and endometrial polyp) Procedure: Hysteroscopy D&C, Polypectomy, myomectomy Surgeon: Gonzalez King MD Anesthesia: MAC Was an Director Global Sales used for this Procedure?: No Estimated blood loss (mL): 0 Pathology: other (Endometrial Scrapping. Polyp, submucosal myoma) Condition: stable Disposition: PACU
--- NOTE | 2021-10-30 09:59 | W.PM.OPN ---
Operative Note Operative Note Date of Service: 10/30/21 Narrative: Preop Diagnosis: Postmenopausal bleeding Operation: Diagnostic Hysteroscopy, Dilataion & Curettage , polypectomy and myomectomy Post Op Diagnosis: Endometrial Polyp, submucosal myoma QBL: Minimal Anesthesia: MAC Surgeon: Gonzalez King MD Machine Shop Worker: None Complication: None Pathology: Endometrial Scrapings, Endometrial polyp, submucosal myoma Procedure: The patient was put in the dorsal lithotomy position, scrubbed, and draped in the usual manner. A sterile speculum was inserted in the patient's vagina. The anterior lip of the cervix was grasped with a single tooth tenaculum. The cervix was dilated up to 5 mm, then the scope was inserted in the patient's uterus. Inspection revealed endometrial 0.5 cm meter polyp, and left side uterine were 1 cm submucosal myoma The Myosure Reach device was used; it was introduced through the operative channel , polypectomy and myomectomy were done with no complications. At the end of the procedure, all instruments were taken out of the patient uterine and vaginal cavity. Endometrial scrapings was carried on with moderate amount of tissues retrieved. The single tooth tenaculum was removed and homeostasis was assured using pressure,. The patient tolerated the procedure well and was transferred to the PACU in a stable condition.
[2021-10-30] MEDS: fentaNYL citrate/PF 100 MCG/2 ML VIAL 25 MCG IVPUSH (10:18)
[2021-10-30] MEDS: Acetaminophen 325 MG TABLET 650 MG PO (10:19)
[2021-10-30] MEDS: oxyCODONE HCl Immed Release 5 MG TABLET PO (10:19)
== END 2021-10-30 11:49 | disposition home or self-care (01) ==
PROVIDERS: Visit Provider Obstetrics & Gynecology
PROC: 0UDB8ZZ Extraction of Endometrium, Via Natural or Artificial Opening Endoscopic (ICD-10-PCS; CPT 58558; principal; 2021-10-30 09:30)
DX: N95.0 Postmenopausal bleeding (principal); D25.0 Submucous leiomyoma of uterus; N84.0 Polyp of corpus uteri; Z88.0 Allergy status to penicillin; F17.210 Nicotine dependence, cigarettes, uncomplicated
CPT/HCPCS: 58558; 88305; J2250; J3010

== ENCOUNTER → 2021-11-12 09:23 | Outpatient (BNVA) | payer OTHER, SELFPAY | PROVIDERS: Visit Provider Obstetrics & Gynecology ==

== ENCOUNTER → 2021-12-09 10:28 | Outpatient (BNVA) | payer OTHER, SELFPAY | PROVIDERS: Visit Provider Physician Assistant | DX: S62.646A Nondisplaced fracture of proximal phalanx of right little finger, initial encounter for closed fracture (principal); W22.8XXA Striking against or struck by other objects, initial encounter | CPT/HCPCS: 73130; 99203 ==

== ENCOUNTER → 2021-12-15 10:10 | Outpatient (BNVA) | payer OTHER, SELFPAY | PROVIDERS: Visit Provider Physician Assistant | DX: S62.629A Displaced fracture of middle phalanx of unspecified finger, initial encounter for closed fracture (principal) | CPT/HCPCS: 99202 ==

== ENCOUNTER 2022-01-08 07:59 | Outpatient (REF) | payer OTHER, SELFPAY ==
--- NOTE | ~2022-01-08 | XR_ITS ---
EXAMINATION: XR HAND, RIGHT CLINICAL INFORMATION: Pain. COMPARISON: Right hand 12/09/2021 TECHNIQUE: PA, lateral, and oblique views of the right hand. FINDINGS: There is a soft tissues calcification along the ulnar aspect of PIP joint fifth digit with mild soft tissue swelling. The findings could be secondary to avulsion injury of indeterminate age. No bony erosive changes seen. No visible acute fracture or dislocation. Visualized joints are unremarkable. XR/XR hand RT min 3V IMPRESSION: Soft tissue calcification along the lateral aspect of PIP joint fifth digit could be traumatic of indeterminate age but likely old. There is associated mild soft tissue swelling. No change from previous study 12/09/2021 There are no erosive changes seen to suspect any arthritic etiology at the fifth digit. Rest of the hand is unremarkable.
== END 2022-01-08 08:00 | disposition home or self-care (01) ==
LOC: HO.HOSX 07:59
PROVIDERS: Visit Provider Physician Assistant
DX: S62.626D Displaced fracture of middle phalanx of right little finger, subsequent encounter for fracture with routine healing (principal); F17.210 Nicotine dependence, cigarettes, uncomplicated; X58.XXXD Exposure to other specified factors, subsequent encounter
CPT/HCPCS: 73130; 99212

== ENCOUNTER 2022-07-06 16:32 | Outpatient (REF) | payer OTHER, SELFPAY ==
--- NOTE | ~2022-07-06 | MR_ITS ---
EXAMINATION: MR BREAST WITHOUT AND WITH CONTRAST, BILATERAL CLINICAL INFORMATION: 52-year-old for high-risk screening, family history of aunts. COMPARISON: Correlation to mammogram of 07/08/2021. TECHNIQUE: Imaging was performed with a dedicated breast coil. Prior to the administration of contrast, bilateral axial T1 and bilateral axial T2 weighted sequences were obtained. After the uneventful administration of?7.5 mL of Gadavist, dynamic contrast-enhanced VIBRANT series through the breasts in the axial plane were performed. Subtracted images were performed and reviewed. A delayed sagittal sequence through both breasts was acquired. Additionally, CAD post-processing, including maximum intensity projections, 3-D reconstructions and kinetic analysis, were performed an independent workstation and reviewed by the interpreting radiologist is a portion of this exam. FINDINGS: The patient's fibroglandular tissue demonstrates moderate background enhancement. LEFT BREAST: There is an oval enhancing T2 bright mass at 2 o'clock, 3.8 cm from the nipple, measuring 0.7 cm consistent with an intramammary lymph node (MR sequence #100 image 65/126). There are multiple enhancing foci throughout the breast parenchyma which limits the sensitivity of this examination. Many of these are T2 bright. There is a more prominent mass with slight indistinct borders in the 9 o'clock position, 8.6 cm from the nipple, measuring 0.9 cm. This demonstrates mixed plateau and progressive-type kinetics and is considered suspicious (MR sequence #100 image 76/126). There are multiple round and oval T2 bright masses consistent with cysts. The largest is at 3 o'clock, measuring 1.2 cm. There are no additional findings on kinetic curve analysis. RIGHT BREAST: There is a segment of linear non-mass enhancement at 9 o'clock, 9 cm from the nipple measuring 4.7 cm in length demonstrating mixed plateau and progressive-type kinetics (MR sequence #100 image 83/126). This finding is suspicious. Biopsy most anterior posterior aspect of this linear non-mass enhancement is recommended (see images 82/126 and 81/126). Similar to the contralateral breast, multiple enhancing foci are noted demonstrating progressive and subthreshold kinetics. There are no other definite areas suspicious of malignancy. There is an oval enhancing, T2 bright masses at 11 o'clock posteriorly consistent with intramammary lymph nodes (MR sequence #100 image 51/126). Similar to the contralateral breast, there are multiple oval and . Round T2 bright masses consistent with cysts. The largest is at 3 o'clock, measuring 1.1 cm. There are no additional findings on kinetic curve analysis. There is no suspicious internal mammary chain or axillary adenopathy. Limited views of the chest and abdomen are unremarkable. MR/MR breast BI wo/w con IMPRESSION: 1. Complicated parenchymal pattern with multiple enhancing foci bilaterally. 2. Left breast with enhancing mass 9 o'clock, 8.6 cm from the nipple, measuring 0.9 cm. 3. Right breast with linear non-mass enhancement 9 o'clock, 9 cm from the nipple, measuring 4.7 cm. ASSESSMENT: LEFT BREAST: BI-RADS 4: Suspicious. RIGHT BREAST: BI-RADS 4: Suspicious. RECOMMENDATIONS: 1. MRI biopsy of the left breast enhancing mass at 9 o'clock. 2. MRI biopsies of the anterior and posterior aspects of the linear non-mass enhancement right breast 9 o'clock, 9 cm from the nipple. The findings were relayed to Samira HOUGH at 2:54 PM on 07/07/2022.
== END 2022-07-06 16:33 | disposition home or self-care (01) ==
LOC: HO.MRI 16:32
PROVIDERS: Visit Provider Obstetrics & Gynecology
DX: Z12.39 Encounter for other screening for malignant neoplasm of breast (principal); Z91.89 Other specified personal risk factors, not elsewhere classified
CPT/HCPCS: 77049; A9585

== ENCOUNTER 2022-07-14 15:32 | Outpatient (REF) | payer OTHER, SELFPAY ==
--- NOTE | ~2022-07-14 | MM_ITS ---
EXAMINATION: MM SCREENING DIGITAL BREAST TOMOSYNTHESIS, BILATERAL CLINICAL INFORMATION: Screening. Asymptomatic. The lifetime risk of breast cancer based on the Tyrer-Cuzick Model is 21%. COMPARISON: Mammography: 07/08/2021, 07/06/2019, 07/03/2019, 12/28/2018; bilateral breast MRI 07/06/2022. TECHNIQUE: Digital breast tomosynthesis is performed in both the craniocaudal and mediolateral oblique views along with computer-aided detection (CAD). Synthesized 2D images are generated from the tomosynthesis. FINDINGS: The breasts are extremely dense, which lowers the sensitivity of mammography (ACR BI-RADS breast composition Category d). There are no significant masses, abnormal calcifications, or other abnormalities. Proximal pattern is similar to prior studies. No developing density or architectural abnormality. Again, there are scattered bilateral calcifications, more numerous on left. The axilla and skin contours are unremarkable. MM/MM tomosynthesis screening BI IMPRESSION: No mammographic evidence of malignancy. ASSESSMENT: BI-RADS 2: Benign (Comment - outstanding BI-RADS 4 for recent breast MR noted). RECOMMENDATION: -Patient is scheduled for bilateral breast MR guided biopsy. -Routine annual mammography screening. This patient's information was entered into a reminder system with a target due date for their next mammogram.
== END 2022-07-14 15:33 | disposition home or self-care (01) ==
LOC: HO.MAMMO 15:32
PROVIDERS: PCP Internal Medicine Medical Oncology; Visit Provider Internal Medicine Medical Oncology
DX: Z12.31 Encounter for screening mammogram for malignant neoplasm of breast (principal)
CPT/HCPCS: 77063; 77067

== ENCOUNTER 2022-07-26 07:30 | Outpatient (REF) | payer OTHER, SELFPAY ==
--- NOTE | ~2022-07-26 | MR_ITS ---
EXAMINATION: MR GUIDED VACUUM-ASSISTED CORE BIOPSY BREAST, RIGHT (TWO SITES) MR GUIDED VACUUM-ASSISTED CORE BIOPSY BREAST, LEFT MM DIGITAL MAMMOGRAPHY POST BIOPSY, BILATERAL CLINICAL INFORMATION: High risk screening breast MR demonstrates 0.9 cm enhancing lesion left breast and central inner breast; and segment linear non-mass enhancement mid to posterior 9:00 right breast. Bilateral biopsies recommended, left and 2 sites on right, anterior and posterior aspect of the segment. COMPARISON: MR bilateral breasts without and with contrast 07/06/2022, bilateral mammography 07/14/2022, 07/08/2021. TECHNIQUE/PROCEDURE: Informed consent was obtained from the patient after discussion of the benefits, risks, and alternatives to biopsy today. Patient appeared to understand. Gave opportunity for questions. Patient signed consent form. Biopsy is performed under MRI guidance using breast surface coil. Imaging is performed without and with use of 7.5 mL Gadavist gadolinium contrast. [employer] introducer localization system is used with grid for each location. RIGHT BREAST (ANTERIOR SITE): LESION: Non-mass enhancement mid to posterior outer breast. LOCAL ANESTHESIA: 8 mL carbonated 1% lidocaine; 4 mL 1% lidocaine; 6 mL 2% lidocaine with epinephrine. NEEDLE: [employer] Atec 9-gauge vacuum assisted core biopsy device. APPROACH: Lateral medial. CORES: 8. CLIP: TriMark cylinder shaped. RIGHT BREAST (POSTERIOR SITE): Separate new biopsy supplies used for second site. LESION: Non-mass enhancement mid to posterior outer breast. LOCAL ANESTHESIA: 8 mL carbonated 1% lidocaine; 4 mL 1% lidocaine; 6 mL 2% lidocaine with epinephrine. NEEDLE: [employer] Atec 9-gauge vacuum assisted core biopsy device. APPROACH: Lateral medial. CORES: 9. CLIP: TriMark spool/barbell shaped. LEFT BREAST: Separate new biopsy supplies used for the left breast. LESION: Nodular enhancement central 9:00 left breast. LOCAL ANESTHESIA: 8 mL carbonated 1% lidocaine; 9 mL 1% lidocaine; 6 mL 2% lidocaine with epinephrine. NEEDLE: [employer] Atec 9-gauge vacuum assisted core biopsy device. APPROACH: Lateral medial. CORES: 13. CLIP: TriMark cylinder shaped. POSTPROCEDURE BILATERAL DIGITAL MAMMOGRAM: Mammography is performed using digital mammography in bilateral CC and bilateral ML views. The breasts are heterogeneously dense, which may obscure small masses (ACR BI-RADS breast composition Category c). Breast tissue composition borders on extremely dense. The clip markers are in position. There is an old smaller clip marker posterior central 3:30 right breast related to a remote biopsy. No gross hematoma on either side. The patient tolerated the procedure well. No immediate complications. Home instructions reviewed with the patient. Final pathology results are pending. MR/MR guided breast biopsy add IMPRESSION: 1. Status post MRI guided vacuum-assisted core biopsies: left breast (1 site) and right breast (2 sites). 2. Final pathology results pending. An addendum report will be issued.
--- NOTE | ~2022-07-26 | MM_ITS ---
Exam is described in single combined report along with the bilateral MR guided breast biopsy, 07/26/2022.
--- NOTE | ~2022-07-26 | MR_ITS ---
EXAMINATION: MR GUIDED VACUUM-ASSISTED CORE BIOPSY BREAST, RIGHT (TWO SITES) MR GUIDED VACUUM-ASSISTED CORE BIOPSY BREAST, LEFT MM DIGITAL MAMMOGRAPHY POST BIOPSY, BILATERAL CLINICAL INFORMATION: High risk screening breast MR demonstrates 0.9 cm enhancing lesion left breast and central inner breast; and segment linear non-mass enhancement mid to posterior 9:00 right breast. Bilateral biopsies recommended, left and 2 sites on right, anterior and posterior aspect of the segment. COMPARISON: MR bilateral breasts without and with contrast 07/06/2022, bilateral mammography 07/14/2022, 07/08/2021. TECHNIQUE/PROCEDURE: Informed consent was obtained from the patient after discussion of the benefits, risks, and alternatives to biopsy today. Patient appeared to understand. Gave opportunity for questions. Patient signed consent form. Biopsy is performed under MRI guidance using breast surface coil. Imaging is performed without and with use of 7.5 mL Gadavist gadolinium contrast. check24 introducer localization system is used with grid for each location. RIGHT BREAST (ANTERIOR SITE): LESION: Non-mass enhancement mid to posterior outer breast. LOCAL ANESTHESIA: 8 mL carbonated 1% lidocaine; 4 mL 1% lidocaine; 6 mL 2% lidocaine with epinephrine. NEEDLE: [employer] Atec 9-gauge vacuum assisted core biopsy device. APPROACH: Lateral medial. CORES: 8. CLIP: TriMark cylinder shaped. RIGHT BREAST (POSTERIOR SITE): Separate new biopsy supplies used for second site. LESION: Non-mass enhancement mid to posterior outer breast. LOCAL ANESTHESIA: 8 mL carbonated 1% lidocaine; 4 mL 1% lidocaine; 6 mL 2% lidocaine with epinephrine. NEEDLE: [employer] Atec 9-gauge vacuum assisted core biopsy device. APPROACH: Lateral medial. CORES: 9. CLIP: TriMark spool/barbell shaped. LEFT BREAST: Separate new biopsy supplies used for the left breast. LESION: Nodular enhancement central 9:00 left breast. LOCAL ANESTHESIA: 8 mL carbonated 1% lidocaine; 9 mL 1% lidocaine; 6 mL 2% lidocaine with epinephrine. NEEDLE: [employer] Atec 9-gauge vacuum assisted core biopsy device. APPROACH: Lateral medial. CORES: 13. CLIP: TriMark cylinder shaped. POSTPROCEDURE BILATERAL DIGITAL MAMMOGRAM: Mammography is performed using digital mammography in bilateral CC and bilateral ML views. The breasts are heterogeneously dense, which may obscure small masses (ACR BI-RADS breast composition Category c). Breast tissue composition borders on extremely dense. The clip markers are in position. There is an old smaller clip marker posterior central 3:30 right breast related to a remote biopsy. No gross hematoma on either side. The patient tolerated the procedure well. No immediate complications. Home instructions reviewed with the patient. Final pathology results are pending. MR/MR guided breast biopsy LT IMPRESSION: 1. Status post MRI guided vacuum-assisted core biopsies: left breast (1 site) and right breast (2 sites). 2. Final pathology results pending. An addendum report will be issued.
--- NOTE | ~2022-07-26 | MR_ITS ---
EXAMINATION: MR GUIDED VACUUM-ASSISTED CORE BIOPSY BREAST, RIGHT (TWO SITES) MR GUIDED VACUUM-ASSISTED CORE BIOPSY BREAST, LEFT MM DIGITAL MAMMOGRAPHY POST BIOPSY, BILATERAL CLINICAL INFORMATION: High risk screening breast MR demonstrates 0.9 cm enhancing lesion left breast and central inner breast; and segment linear non-mass enhancement mid to posterior 9:00 right breast. Bilateral biopsies recommended, left and 2 sites on right, anterior and posterior aspect of the segment. COMPARISON: MR bilateral breasts without and with contrast 07/06/2022, bilateral mammography 07/14/2022, 07/08/2021. TECHNIQUE/PROCEDURE: Informed consent was obtained from the patient after discussion of the benefits, risks, and alternatives to biopsy today. Patient appeared to understand. Gave opportunity for questions. Patient signed consent form. Biopsy is performed under MRI guidance using breast surface coil. Imaging is performed without and with use of 7.5 mL Gadavist gadolinium contrast. [employer] introducer localization system is used with grid for each location. RIGHT BREAST (ANTERIOR SITE): LESION: Non-mass enhancement mid to posterior outer breast. LOCAL ANESTHESIA: 8 mL carbonated 1% lidocaine; 4 mL 1% lidocaine; 6 mL 2% lidocaine with epinephrine. NEEDLE: [employer] Atec 9-gauge vacuum assisted core biopsy device. APPROACH: Lateral medial. CORES: 8. CLIP: TriMark cylinder shaped. RIGHT BREAST (POSTERIOR SITE): Separate new biopsy supplies used for second site. LESION: Non-mass enhancement mid to posterior outer breast. LOCAL ANESTHESIA: 8 mL carbonated 1% lidocaine; 4 mL 1% lidocaine; 6 mL 2% lidocaine with epinephrine. NEEDLE: S[employer] Atec 9-gauge vacuum assisted core biopsy device. APPROACH: Lateral medial. CORES: 9. CLIP: TriMark spool/barbell shaped. LEFT BREAST: Separate new biopsy supplies used for the left breast. LESION: Nodular enhancement central 9:00 left breast. LOCAL ANESTHESIA: 8 mL carbonated 1% lidocaine; 9 mL 1% lidocaine; 6 mL 2% lidocaine with epinephrine. NEEDLE: [employer] Atec 9-gauge vacuum assisted core biopsy device. APPROACH: Lateral medial. CORES: 13. CLIP: TriMark cylinder shaped. POSTPROCEDURE BILATERAL DIGITAL MAMMOGRAM: Mammography is performed using digital mammography in bilateral CC and bilateral ML views. The breasts are heterogeneously dense, which may obscure small masses (ACR BI-RADS breast composition Category c). Breast tissue composition borders on extremely dense. The clip markers are in position. There is an old smaller clip marker posterior central 3:30 right breast related to a remote biopsy. No gross hematoma on either side. The patient tolerated the procedure well. No immediate complications. Home instructions reviewed with the patient. Final pathology results are pending. MR/MR guided breast biopsy RT IMPRESSION: 1. Status post MRI guided vacuum-assisted core biopsies: left breast (1 site) and right breast (2 sites). 2. Final pathology results pending. An addendum report will be issued.
[2022-07-26] MEDS: Lidocaine HCl 1 % MPF 30 ML VIAL SUBCUT ×2 (11:05→11:10)
[2022-07-26] MEDS: Sodium Bicarbonate 8.4% 50 MEQ in Dextrose 5 % 950 ML IV (11:09)
[2022-07-26] MEDS: Lidocaine HCl 2% PF/Epi 1:200 20 ML VIAL INFILTRATI (11:11)
== END 2022-07-26 07:31 | disposition home or self-care (01) ==
LOC: HO.MRI 07:30
PROVIDERS: Visit Provider Surgery
DX: R92.8 Other abnormal and inconclusive findings on diagnostic imaging of breast (principal); R92.0 Mammographic microcalcification found on diagnostic imaging of breast
CPT/HCPCS: 19085; 19086; 77062; 77066; 88305; 88341; 88342; A4648; A9585

== ENCOUNTER → 2022-12-29 15:26 | Outpatient (BNVA) | payer OTHER, SELFPAY | PROVIDERS: PCP Internal Medicine Medical Oncology; Visit Provider Obstetrics & Gynecology | DX: Z13.89 Encounter for screening for other disorder (principal) ==

== ENCOUNTER 2023-05-24 11:01 | Outpatient (REF) | payer OTHER, SELFPAY ==
[2023-05-24 12:04] LABS: Bacteria Urine None Seen (None Seen); Hyaline Casts Urine 0-2 /LPF (0-2); RBC Urine 0-2 /HPF (0-2); WBC Urine 0-5 /HPF (0-5)
[2023-05-24 12:15] LABS: Appearance Urine Clear; Color Urine Yellow; Glucose Urine UA Negative (Negative); Leukocyte Esterase Urine Negative (Negative); Nitrite Urine Negative (Negative); Urine Blood Negative (Negative); Urine Ketones Negative (Negative); Urine Protein Negative (Neg-Trace)
== END 2023-05-24 11:02 | disposition home or self-care (01) ==
LOC: HO.LNP 11:01
PROVIDERS: Visit Provider Internal Medicine Medical Oncology
DX: N30.90 Cystitis, unspecified without hematuria (principal)
CPT/HCPCS: 81001; 87086

== ENCOUNTER 2023-06-15 17:03 | Outpatient (REF) | payer OTHER, SELFPAY ==
[2023-06-15 17:32] LABS: Appearance Urine Clear; Color Urine Yellow; Glucose Urine UA Negative (Negative); Leukocyte Esterase Urine Trace (Negative); Nitrite Urine Negative (Negative); UMIC TRIGGER UACC YES; Urine Blood Negative (Negative); Urine Ketones Negative (Negative); Urine Protein Negative (Neg-Trace)
[2023-06-15 17:38] LABS: Bacteria Urine None Seen (None Seen); Hyaline Casts Urine 0-2 /LPF (0-2); RBC Urine 0-2 /HPF (0-2); WBC Urine 0-5 /HPF (0-5)
== END 2023-06-15 17:04 | disposition home or self-care (01) ==
LOC: HO.LNP 17:03
PROVIDERS: Visit Provider Internal Medicine Medical Oncology
DX: N30.90 Cystitis, unspecified without hematuria (principal)
CPT/HCPCS: 81001; 87086

== ENCOUNTER 2023-07-20 15:33 | Outpatient (REF) | payer OTHER, SELFPAY ==
--- NOTE | ~2023-07-20 | MM_ITS ---
EXAMINATION: MM SCREENING DIGITAL BREAST TOMOSYNTHESIS, BILATERAL CLINICAL INFORMATION: Screening. Asymptomatic. COMPARISON: Mammography: This study is compared with prior exams dating back to 2019. TECHNIQUE: Digital breast tomosynthesis is performed in both the craniocaudal and mediolateral oblique views along with computer-aided detection (CAD). Synthesized 2D images are generated from the tomosynthesis. FINDINGS: The breasts are heterogeneously dense, which may obscure small masses (ACR BI-RADS breast composition Category c). There are no significant masses, abnormal calcifications, or other abnormalities. There is 1 biopsy tissue marker in the left breast and 2 biopsy tissue markers in the right breast. These indicate sites of prior benign percutaneous biopsy. There are bilateral, unchanged, benign calcifications. MM/MM tomosynthesis screening BI IMPRESSION: No mammographic evidence of malignancy. ASSESSMENT: BI-RADS BI-RADS 2 - Benign Findings RECOMMENDATION: Routine annual mammography screening. 1 year F/U This examination should not preclude the clinical evaluation of a suspicious palpable abnormality. This patient's information was entered into a reminder system with a target due date for their next mammogram.
== END 2023-07-20 15:34 | disposition home or self-care (01) ==
LOC: HO.MAMMO 15:33
PROVIDERS: Visit Provider Internal Medicine Medical Oncology
DX: Z12.31 Encounter for screening mammogram for malignant neoplasm of breast (principal)
CPT/HCPCS: 77063; 77067

== ENCOUNTER → 2023-07-20 15:45 | Outpatient (BNV) | payer OTHER, SELFPAY | PROVIDERS: Visit Provider Radiology Diagnostic Radiology | DX: Z12.31 Encounter for screening mammogram for malignant neoplasm of breast (principal) | CPT/HCPCS: 77063; 77067 ==